=== PATIENT | male | born 1980 | race African-American/Black ===

== ENCOUNTER 2017-03-19 02:16 | Emergency (ER) | payer OTHER ==
[~2017-03-19] VITALS: Ht 182.9 cm; Wt 70.3 kg
--- NOTE | ~2017-03-19 | EKG ---
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 : 1980 Requested By: Tobi Godoy Order Number: [id number] MD: Danie Rosa Measurements Intervals [place] Rate: 102 P: 49 [place]: 169 QRS: -80 QRSD: 103 T: 89 QT: 371 QTc: 484 Interpretive Statements Sinus tachycardia Left atrial enlargement Left anterior fascicular block Left ventricular hypertrophy Anterior Q waves, possibly due to LVH Compared to ECG 10/14/2016 12:48:18 ST and T wave abnormality is less pronounced Electronically Signed On 03-19-2017 8:58:34 CDT by Danie Rosa [email or web address] <ELECTRONICALLY SIGNED> By: Danie Rosa MD, [facility] 03/19/17 0858 0230 0230 Danie Rosa MD, [facility] /EPI
[~2017-03-19 02:16] MED LIST: ACCUPRIL40 MG PO; ASPIR 8181 MG PO; CALCITRIOL0.25 MCG PO; HYDRALAZINE 2525 MG PO; LISINOPRIL20 MG PO; LOPRESSOR50 PO; NORCO 5-325 TA1 EACH PO; NORVASC10 MG PO; ONDANSETRON HCL4 M2 PO; TUMS CHEWA500 MG/11 PO; TUMS PO; [UNRECOGNIZED DRUG - OTHER]
[2017-03-19 02:40] LABS: HEMATOCRIT 50.7 % (42.0-52.0); MCH 31.2 pg (26.0-34.0); MCHC 33.6 g/dL (28.0-37.0); RBC 5.45 mil/uL (4.50-6.00); RDW 15.4 % (10.5-14.5); WBC 6.7 thou/uL (4.0-11.0)
[2017-03-19 02:49] LABS: CALCIUM 6.6 mg/dL (8.5-10.1); CREATININE 11.2 mg/dL (0.7-1.3); POTASSIUM 5.8 mmol/L (3.5-5.1)
[2017-03-19 02:53] LABS: ALBUMIN 4.2 g/dL (3.4-5.0); MAGNESIUM 2.1 mg/dL (1.8-2.4); TOTAL BILIRUBIN 0.4 mg/dL (<0.1-1.0); TOTAL PROTEIN 9.2 g/dL (6.4-8.2)
[2017-03-19] MEDS ORDERED: NORCO 5-325 TA1 EACH PO (05:00)
== END 2017-03-19 05:10 | disposition home or self-care (01) ==
LOC: ER 02:16
PROVIDERS: Emergency Medicine
DX: E83.51 Hypocalcemia (principal); I12.0 Hypertensive chronic kidney disease with stage 5 chronic kidney disease or end stage renal disease; N18.6 End stage renal disease; E89.2 Postprocedural hypoparathyroidism; E87.5 Hyperkalemia; Z99.2 Dependence on renal dialysis; Z88.5 Allergy status to narcotic agent; Z88.0 Allergy status to penicillin